=== PATIENT | male | born 1990 | race Two or more races ===

== ENCOUNTER 2025-03-11 19:49 | Inpatient (IN) | payer SELFPAY ==
[~2025-03-11] VITALS: Ht 167.6 cm; Wt 79.0 kg
[2025-03-11 21:18] LABS: Basophils # (auto) 0 10 ^3/uL (0-0.2); Basophils % (auto) 0.5 % (0.0-2.0); Eosinophils # (auto) 0 10 ^3/uL (0-0.8); Eosinophils % (auto) 0.6 % (0.0-7.0); Hematocrit 42.2 % (41.0-53.0); Hemoglobin 14.6 g/dL (13.5-17.5); Lymphocytes # (auto) 1.2 10 ^3/uL (0.4-5.4); Lymphocytes % (auto) 15.8 % (10.0-50.0); Mean Corpuscular Hemoglobin 30.6 pg (28.0-32.0); Mean Corpuscular Hgb Conc. 34.7 g/dL (32.0-36.0); Mean Corpuscular Volume 88.2 fL (80.0-100.0); Monocytes # (auto) 1.3 10 ^3/uL (0-1.3); Neutrophils # (auto) 5.2 10 ^3/uL (1.6-8.6); Neutrophils % (auto) 66.1 % (37.0-80.0); Platelet Count (auto) 275 10^3/uL (140-450); Red Blood Cells 4.78 10^6/uL (4.5-5.90); Red Cell Distribution Width 12.6 % (11.8-14.3); White Blood Cell 7.8 10^3/uL (4.4-10.8)
--- NOTE | 2025-03-11 21:24 | DVH ---
CHEST RADIOGRAPH Indication: AMS Technique: Single frontal view of the chest was obtained Comparison: None FINDINGS: Lines and Tubes: None Lungs: Poor inspiratory effort Pleura: No effusion. No pneumothorax. Cardiomediastinal contours: Unremarkable Bones: No acute osseous abnormality. IMPRESSION: 1. Poor inspiratory effort
--- NOTE | 2025-03-11 21:28 | DVH ---
EXAM: CT HEAD WITHOUT CONTRAST INDICATION: Altered mental status TECHNIQUE: CT of the head without intravenous contrast. Radiation Dose Information: CT Dose: CTDI volume is 8.63 mGy. Dose-length product is 1057.13 mGy*cm The dose indicators for CT are the volume Computed Tomography (CT) Dose Index (CTDIvol) and the Dose Length Product (DLP), and are measured in units of mGy and mGy-cm, respectively. These indicators are not patient dose, but values generated from the CT scanner acquisition factors. The report includes radiation exposure data for exposures received during this examination. COMPARISON: None FINDINGS: There is no evidence of acute intracranial hemorrhage, extra-axial collection, mass effect, midline s hift, herniation or hydrocephalus. The ventricles, sulci and cisterns are age appropriate. The fritz-white differentiation is intact. Patchy periventricular and subcortical white matter hypoattenuation is nonspecific but may be related to small vessel ischemic disease. Small inclusion cyst right maxillary sinus and mastoid air cells are clear. The surrounding soft tissues and osseous structures are unremarkable. IMPRESSION: 1. No acute intracranial hemorrhage 2. No CT findings of territorial ischemia. 3. No CT findings of displaced skull fracture.
[2025-03-11 21:32] LABS: Albumin 4.6 g/dL (3.2-4.8); Alkaline Phosphatase 89 U/L (46-116); Anion Gap 12 (5-15); BUN/Creatinine Ratio 17.6 (10.0-20.0); Blood Alcohol 3.6 mg/dL (<10); Blood Urea Nitrogen 16 mg/dL (9-23); Total Protein 7.5 g/dL (5.7-8.2)
[2025-03-11 21:35] LABS: Alanine Aminotransferase 107 U/L (7-40); Aspartate Aminotransferase 69 U/L (13-40); Bilirubin, Total 1.8 mg/dL (0.2-1.0); Carbon Dioxide 33 mmol/L (20-31); Chloride 86 mmol/L (98-107); Glucose 127 mg/dL (74-106); Magnesium 2.7 mg/dL (1.6-2.6); Potassium 2.6 mmol/L (3.5-5.1); Sodium 131 mmol/L (136-145)
--- NOTE | 2025-03-11 21:42 | ECG ---
[facility] Test Date: 2025-03-11 Test Time: 20:03:04 Pat Name: JAIR CRAIG Department: ED Room: 0217 Gender: M Pad Hand: ZACK : 1990 Requested By: JIMENA RODRÍGUEZ Order Number: [id number] Reading MD: Armani Serrano Measurements Intervals Chancellor Rate: 101 P: 69 CO: 204 QRS: 84 QRSD: 95 T: -27 QT: 367 QTc: 476 Interpretive Statements Sinus tachycardia Borderline prolonged CO interval Consider left atrial enlargement Nonspecific T abnormalities, inferior leads Borderline prolonged QT interval Artifact in lead(s) I,II,III,aVR,aVL,aVF,V1,V2,V3,V4,V5,V6 and baseline wander in lead(s) II,III,aVF Electronically Signed On 03-13-2025 12:47:15 PDT by Armani Serrano Please click the below link to view image of tracing.
[2025-03-11 21:44] LABS: Lipase 38 U/L (12-53)
--- NOTE | 2025-03-11 22:03 | ED.PDOC ---
History of Present Illness HPI Comments 34 y/o M, with a limited known history of polysubstance abuse, is BIBA from a rehabilitation home facility for ALOC. Per EMS, housemates at facility called after endorsing on patient having seizure-like activity, characterized by "shaking," after taking mushrooms and withdrawing from crystal methamphetamine. Patient was noted to have been groaning, responding to painful stimuli and shaking his head to "yes" or "no" questions on scene. He was also found tachycardic, with a rate in the 110's range, a blood glucose of 166, and no signs of oral trauma and PERRL. En route, patient was given 1mg Narcan, with no improvement to mental status. Upon arrival, patient is speaking and responding s lowly and admits additional use of alcohol, earlier. Further history is limited, due to patient's current state. Chief Complaint: ALOC Time Seen by MD: 20:00 Reviewed Notes: Nurses Notes, Medications, Allergies Allergies: Coded Allergies: UNOBTAINABLE (Unverified , 03/11/25) Pt to answering assessment questions. Information Source: Emergency Med Personnel Mode of Arrival: EMS Severity: Moderate Timing: Hours Duration: Since onset Prehospital treatment: 12 Lead EKG, Accucheck (166), Heating Mechanic Review of Systems: Unable to obtain ROS due to patient's altered mental status Vital Signs Vital Signs Date Time Temp Pulse Resp B/P (MAP) Pulse Ox O2 Delivery O2 Flow Rate FiO2 03/11/25 22:03 101 03/11/25 20:13 98.9 17 160/89 (112) 100 98.9 Physical Exam General: Awake, alert, following commands Skin: Skin in warm, dry and intact without rashes or lesions. HEENT: The head is normocephalic and atraumatic. Conjunctivae are clear without exudates or hemorrhage. Sclera is non-icteric. Neck: Normal range of motion. No JVD. Cardiac: Regular rate Respiratory: No signs of respiratory distress. No Stridor. Extremities: Upper and lower extremities are atraumatic in appearance without deformity. Able to move all 4 extremities. Neurological: The patient is awake, alert; slow to respond, speaking in short one-word sentences. There is no facial asymmetry. Past Medical History PAST MEDICAL HISTORY: Unknown, Unobtainable Surgical History: Unknown, Unobtainable Family History Family History: Unknown, Unobtainable Social History Smoker: Unknown, Unobtainable Alcohol: Heavy Drugs: Other (mushrooms) Lives In: Unknown Was a procedure done? Was a procedure done?: No EKG EKG : Pulse Rate (adult): 101 [place]: Normal Cardiac Rhythm: ST Block: None Hypertrophy: None ST: Normal Comments No STEMI Differential Dx Considerations may include: Differential diagnosis considered includes but not limited to intracranial hemorrhage, stroke, head injury, seizure, metabolic disturbance, electrolyte imbalance, infection, substance intoxication, psychiatric cause, other systemic illness, other X-Ray, Labs, Meds, VS Vital Signs Date Time Temp Pulse Resp B/P (MAP) Pulse Ox O2 Delivery O2 Flow Rate FiO2 03/11/25 22:03 101 03/11/25 20:13 98.9 114 17 160/89 (112) 100 98.9 03/11/25 20:03 101 Lab Test 03/11/25 22:20 03/11/25 20:52 Range/Units Blood Gas Specimen Type Arterial Blood Gas Sample Site Left radial Blood Gas Patient Temperature 37.0 Arterial Blood Date Drawn [id number] Arterial Blood pH 7.507 H 7.350-7.450 Arterial Blood Partial Pressure CO2 39.6 35.0-48.0 mmHg Arterial Blood Partial Pressure O2 68.2 L 83.0-108.0 mmHg Arterial Blood HCO3 30.7 H 21.0-28.0 mmol/L Arterial Blood Oxygen Saturation 94.2 94.0-98.0 % Arterial Blood Base Excess 7.1 H -2.0-3.0 mmol/L Arterial Blood Oxyhemoglobin 93.4 L 94.0-98.0 % Arterial Blood Carboxyhemoglobin 0.6 0.5-1.5 % Arterial Blood Methemoglobin 0.3 0.0-1.5 % Home Test Modified Blood Gas Total Hemoglobin 15.20 13.5-17.5 g/dL Blood Gas Modality Room air FiO2 % 21.0 White Blood Count 7.8 4.4-10.8 10^3/uL Red Blood Count 4.78 4.5-5.90 10^6/uL Hemoglobin 14.6 13.5-17.5 g/dL Hematocrit 42.2 41.0-53.0 % Mean Corpuscular Volume 88.2 80.0-100.0 fL Mean Corpuscular Hemoglobin 30.6 28.0-32.0 pg Mean Corpuscular Hemoglobin Concent 34.7 32.0-36.0 g/dL Red Cell Distribution Width 12.6 11.8-14.3 % Platelet Count 275 140-450 10^3/uL Mean Platelet Volume 7.8 6.9-10.8 fL Neutrophils (%) (Auto) 66.1 37.0-80.0 % Lymphocytes (%) (Auto) 15.8 10.0-50.0 % Monocytes (%) (Auto) 17.0 H 0.0-12.0 % Eosinophils (%) (Auto) 0.6 0.0-7.0 % Basophils (%) (Auto) 0.5 0.0-2.0 % Neutrophils # (Auto) 5.2 1.6-8.6 10 ^3/uL Lymphocytes # (Auto) 1.2 0.4-5.4 10 ^3/uL Monocytes # (Auto) 1.3 0-1.3 10 ^3/uL Eosinophils # (Auto) 0 0-0.8 10 ^3/uL Basophils # (Auto) 0 0-0.2 10 ^3/uL Nucleated Red Blood Cells 0.0 % Sodium Level 131 L 136-145 mmol/L Potassium Level 2.6 L 3.5-5.1 mmol/L Chloride Level 86 L 98-107 mmol/L Carbon Dioxide Level 33 H 20-31 mmol/L Anion Gap 12 5-15 Blood Urea Nitrogen 16 9-23 mg/dL Creatinine 0.91 0.700-1.30 mg/dL Glomerular Filtration Rate Calc 112 >90 mL/min BUN/Creatinine Ratio 17.6 10.0-20.0 Serum Glucose 127 H 74-106 mg/dL Calcium Level 10.0 8.7-10.4 mg/dL Magnesium Level 2.7 H 1.6-2.6 mg/dL Total Bilirubin 1.8 H 0.2-1.0 mg/dL Aspartate Amino Transferase (AST) 69 H 13-40 U/L Alanine Aminotransferase (ALT) 107 H 7-40 U/L Alkaline Phosphatase 89 46-116 U/L Troponin I High Sensitivity 5 </=54 ng/L B-Type Natriuretic Peptide 19.35 0-100 pg/mL Total Protein 7.5 5.7-8.2 g/dL Albumin 4.6 3.2-4.8 g/dL Lipase 38 12-53 U/L Plasma/Serum Blood Alcohol 3.6 <10 mg/dL Current Medications Medications (Trade) Dose Ordered Sig/Kamar Route Start Time Stop Time Status Last Admin Sodium Chloride 1,000 ml @ 1,000 mls/hr Q1H ONCE IV 03/11/25 20:15 03/11/25 21:14 DC 03/11/25 22:33 Potassium Chloride 100 ml @ 50 mls/hr Q2H IV 03/11/25 22:15 03/12/25 02:14 03/11/25 22:34 [place] [address] Ph: [phone] DIAGNOSTIC IMAGING Diagnostic Imaging Report : [id number] Signed PATIENT: ADELIA LAVARESACCT: [id number] UNIT: [id number] 1 : 1990 LOC: ER ROOM / BED: / AGE / SEX: 34 / M ADM STATUS: REG ER SERVICE 04 ORDERING PHYSICIAN: JIMENA RODRÍGUEZ MD PROCEDURE(s): HWOCT - HEAD WITHOUT CONTRAST REASON: Altered mental status ORDER NUMBER(s): [id number], ACCESSION NUMBER(s): [id number] EXAM: CT HEAD WITHOUT CONTRAST INDICATION: Altered mental status TECHNIQUE: CT of the head without intravenous contrast. Radiation Dose Information: CT Dose: CTDI volume is 8.63 mGy. Dose-length product is 1057.13 mGy*cm The dose indicators for CT are the volume Computed Tomography (CT) Dose Index (CTDIvol) and the Dose Length Product (DLP), and are measured in units of mGy and mGy-cm, respectively. These indicators are not patient dose, but values generated from the CT scanner acquisition factors. The report includes radiation exposure data for exposures received during this examination. COMPARISON: None FINDINGS: There is no evidence of acute intracranial hemorrhage, extra-axial collection, mass effect, midline shift, herniation or hydrocephalus. The ventricles, sulci and cisterns are age appropriate. The fritz-white differentiation is intact. Patchy periventricular and subcortical white matter hypoattenuation is nonspecific but may be related to small vessel ischemic disease. Small inclusion cyst right maxillary sinus and mastoid air cells are clear. The surrounding soft tissues and osseous structures are unremarkable. IMPRESSION: 1. No acute intracranial hemorrhage 2. No CT findings of territorial ischemia. 3. No CT findings of displaced skull fracture. ATED BY: CORONA SHORT Jr., DO DICTATED DATE/TIME: 03/11/252124 SIGNED BY: CORONA SHORT Jr., DO SIGNED DATE/TIME: 03/11/252124 CC: [place] [address] Ph: [phone] DIAGNOSTIC IMAGING Diagnostic Imaging Report : [id number] Signed PATIENT: ADELIA ALVARESACCT: [id number] UNIT: [id number] 1 : 1990 LOC: ER ROOM / BED: / AGE / SEX: 34 / M ADM STATUS: REG ER SERVICE 04 ORDERING PHYSICIAN: JIMENA RODRÍGUEZ MD PROCEDURE(s): CXR1 - CHEST XRAY 1 VIEW REASON: AMS ORDER NUMBER(s): [id number], ACCESSION NUMBER(s): [id number] CHEST RADIOGRAPH Indication: AMS Technique: Single frontal view of the chest was obtained Comparison: None FINDINGS: Lines and Tubes: None Lungs: Poor inspiratory effort Pleura: No effusion. No pneumothorax. Cardiomediastinal contours: Unremarkable Bones: No acute osseous abnormality. IMPRESSION: 1. Poor inspiratory effort ATED BY: CORONA SHORT Jr., DO DICTATED DATE/TIME: 03/11/252121 SIGNED BY: CORONA SHORT Jr., DO SIGNED DATE/TIME: 03/11/252121 CC: PROCEDURE(s): HWOCT - HEAD WITHOUT CONTRAST REASON: Altered mental status ORDER NUMBER(s): [id number], ACCESSION NUMBER(s): [id number] EXAM: CT HEAD WITHOUT CONTRAST INDICATION: Altered mental status TECHNIQUE: CT of the head without intravenous contrast. Radiation Dose Information: CT Dose: CTDI volume is 8.63 mGy. Dose-length product is 1057.13 mGy*cm The dose indicators for CT are the volume Computed Tomography (CT) Dose Index (CTDIvol) and the Dose Length Product (DLP), and are measured in units of mGy and mGy-cm, respectively. These indicators are not patient dose, but values generated from the CT scanner acquisition factors. The report includes radiation exposure data for exposures received during this examination. COMPARISON: None FINDINGS: There is no evidence of acute intracranial hemorrhage, extra-axial collection, mass effect, midline shift, herniation or hydrocephalus. The ventricles, sulci and cisterns are age appropriate. The fritz-white differentiation is intact. Patchy periventricular and subcortical white matter hypoattenuation is nonspecific but may be related to small vessel ischemic disease. Small inclusion cyst right maxillary sinus and mastoid air cells are clear. The surrounding soft tissues and osseous structures are unremarkable. IMPRESSION: 1. No acute intracranial hemorrhage 2. No CT findings of territorial ischemia. 3. No CT findings of displaced skull fracture. EDURE(s): ABDL - ABDOMEN LIMITED REASON: RUQ, elevated LFTs ORDER NUMBER(s): [id number], ACCESSION NUMBER(s): [id number] ABDOMINAL ULTRASOUND CLINICAL HISTORY: RUQ, elevated LFTs TECHNIQUE: Multiple grayscale and color Doppler ultrasound images were obtained of the abdomen. WID: COMPARISON: None FINDINGS: Liver and Biliary System: Increased echogenicity, mildly enlarged measuring 17.3 cm. No focal hepatic observations. No intrahepatic bile duct dilatation. The common duct measures 0.4 cm at the maykel hepatis. The gallbladder is normal caliber without cholelithiasis or wall thickening.. Pancreas: Visualized portions are unremarkable. Kidneys: The right kidney is 11 cm. No hydronephrosis, increased echogenicity, shadowing stone, or focal lesion. IMPRESSION: Mild hepatomegaly with diffuse hepatic steatosis. ATED BY: NAY LEIJA MD DICTATED DATE/TIME: 03/11/252310 SIGNED BY: NAY LEIJA MD SIGNED DATE/TIME: 03/11/252310 CC: Time of 1ST Reevaluation: 20:30 Reevaluation 1ST: Unchanged Patient Education/Counseling: Other (patient is intoxicated ) Family Education/Counseling: No Family Present Departure 1 Departure Time of Disposition: 23:35 Impression: Primary Impression: Altered mental status Additional Impressions: Hypokalemia Hyponatremia Metabolic encephalopathy Disposition: ADMITTED INPATIENT Condition: Guarded Comments 34-year-old male who presented to the emergency department with altered mental status. IV fluids, potassium replacement initiated in the emergency department. Patient admitted to hospitalist service for further treatment, evaluation and monitoring. Extensive evaluation was performed in attempt to identify or rule out: (See differential diagnosis section) The following tests were ordered, and results were reviewed by me and discussed with patient: (See diagnostic results section) The following test were independently interpreted by me: N/A I reviewed and agreed with the following test results read by other providers: N/A I reviewed the following notes from the pt's past medical encounters: N/A Additional information was gathered from interviewing the following independent historians: EMS Discussion of management or test interpretation with external physician/other qualified health professional healthcare representative: N/A Addressed an acute or chronic illness that poses a threat to life or bodily function: Metabolic alkalosis, altered mental status, hypokalemia, other Decision regarding hospitalization or escalation of hospital level of care: Risk and benefits of admission for further treatment of patient's condition was con sidered. Due to patient's current clinical condition, high risk of decline and poor outcome if discharged and need for further inpatient management and monitoring, patient will be admitted to the hospital. Drug therapy requiring intensive monitoring for toxicity: IV potassium Parenteral controlled substances: N/A Decision regarding elective major surgery with identified patient or procedure risk factors: N/A Decision regarding emergency major surgery: N/A Decision not to resuscitate or to de-escalate care because of poor prognosis: N/A Diagnosis or treatment significantly limited by social determinants of health: N/A Critical Care Note Critical Care Time?: No Stability Stability form required: No Heart Score Heart Score: Heart Score Response (Comments) Value History N/A 0 EKG N/A 0 Age N/A 0 Risk Factors N/A 0 Troponin N/A 0 Total 0 I personally scribed for JIMENA RODRÍGUEZ MD ([email or web address]) on 03/11/25 at 22:03. Electronically submitted by Maxx Rocha ([email or web address]). JIMENA RODRÍGUEZ MD March 11, 2025 22:03
[2025-03-11] MEDS: SODIUM CHLORIDE 0.9% 1,000 ML IV ONE ×2 (22:33→23:36)
[2025-03-11] MEDS: POTASSIUM CHL 20MEQ/100ML 100 ML IV SCH (22:34)
[2025-03-11 22:41] LABS: Base Excess 7.1 mmol/L (-2.0-3.0)
--- NOTE | 2025-03-11 23:14 | DVH ---
ABDOMINAL ULTRASOUND CLINICAL HISTORY: RUQ, elevated LFTs TECHNIQUE: Multiple grayscale and color Doppler ultrasound images were obtained of the abdomen. WID: COMPARISON: None FINDINGS: Liver and Biliary System: Increased echogenicity, mildly enlarged measuring 17.3 cm. No focal hepa tic observations. No intrahepatic bile duct dilatation. The common duct measures 0.4 cm at the port a hepatis. The gallbladder is normal caliber without cholelithiasis or wall thickening.. Pancreas: Visualized portions are unremarkable. Kidneys: The right kidney is 11 cm. No hydronephrosis, increased echogenicity, shadowing stone, or focal lesion. IMPRESSION: Mild hepatomegaly with diffuse hepatic steatosis.
--- NOTE | 2025-03-11 23:14 | DVHHP2 ---
History of Present Illness Reason for Visit: Altered mental status History of Present Illness 34-year-old male presents for evaluation of altered mental status. Patient was sent from a rehabilitation facility for evaluation of altered mental status which started today. Patient is currently lethargic oriented x2. At times he refuses to answer any questions. No focal deficits noted. Denies chest pain or shortness for breath. No other acute complaints Past Medical History Unknown Past Surgical History Unknown Family History Noncontributory Smoke: No ALCOHOL: none Drugs: None Lives: with Family Review of Systems Review of Systems Review of systems are currently negative otherwise addressed in HPI. Allergies: Coded Allergies: UNOBTAINABLE (Unverified , 03/11/25) Pt to answering assessment questions. Medications Current Medications Medications Dose Ordered Sig/Kamar Route Start Time Stop Time Status Last Admin Dose Admin Potassium Chloride 100 ml @ 50 mls/hr Q2H IV 03/11/25 22:15 03/12/25 02:14 03/11/25 22:34 50 MLS/HR Exam Vital Signs Vital Signs Date Time Temp Pulse Resp B/P (MAP) Pulse Ox O2 Delivery O2 Flow Rate FiO2 03/11/25 22:03 101 03/11/25 20:13 98.9 17 160/89 (112) 100 98.9 Exam Gen: 34-year-old male in mild distress, lethargic Skin: Warm, dry, normal color and texture, no rash. HEENT: Normocephalic atraumatic, mucous membranes moist and pink. Neck: Cervical and supraclavicular nodes normal without enlargement, trachea is midline, thyroid gland is normal without masses. Pulmonary: Clear to auscultation and percussion bilaterally. Cardiac: Regular rate and rhythm. No murmur Abdomen: Soft, nontender, nondistended, bowel sounds present all 4 quadrants, no guarding, no rigidity, no organomegaly. Extremities: No cyanosis, clubbing, no edema Neuro: Lethargic Labs/Xrays ORDERING PHYSICIAN: JIMENA RODRÍGUEZ MD PROCEDURE(s): CXR1 - CHEST XRAY 1 VIEW REASON: AMS ORDER NUMBER(s): [id number], ACCESSION NUMBER(s): [id number] CHEST RADIOGRAPH Indication: AMS Technique: Single frontal view of the chest was obtained Comparison: None FINDINGS: Lines and Tubes: None Lungs: Poor inspiratory effort Pleura: No effusion. No pneumothorax. Cardiomediastinal contours: Unremarkable Bones: No acute osseous abnormality. IMPRESSION: 1. Poor inspiratory effort RING PHYSICIAN: JIMENA RODRÍGUEZ MD PROCEDURE(s): HWOCT - HEAD WITHOUT CONTRAST REASON: Altered mental status ORDER NUMBER(s): [id number], ACCESSION NUMBER(s): [id number] EXAM: CT HEAD WITHOUT CONTRAST INDICATION: Altered mental status TECHNIQUE: CT of the head without intravenous contrast. Radiation Dose Information: CT Dose: CTDI volume is 8.63 mGy. Dose-length product is 1057.13 mGy*cm The dose indicators for CT are the volume Computed Tomography (CT) Dose Index (CTDIvol) and the Dose Length Product (DLP), and are measured in units of mGy and mGy-cm, respectively. These indicators are not patient dose, but values generated from the CT scanner acquisition factors. The report includes radiation exposure data for exposures received during this examination. COMPARISON: None FINDINGS: There is no evidence of acute intracranial hemorrhage, extra-axial collection, mass effect, midline shift, herniation or hydrocephalus. The ventricles, sulci and cisterns are age appropriate. The fritz-white differentiation is intact. Patchy periventricular and subcortical white matter hypoattenuation is nonspecific but may be related to small vessel ischemic disease. Small inclusion cyst right maxillary sinus and mastoid air cells are clear. The surrounding soft tissues and osseous structures are unremarkable. IMPRESSION: 1. No acute intracranial hemorrhage 2. No CT findings of territorial ischemia. 3. No CT findings of displaced skull fracture. Labs Test 03/11/25 22:20 03/11/25 20:52 Range/Units Blood Gas Specimen Type Arterial Blood Gas Sample Site Left radial Blood Gas Patient Temperature 37.0 Arterial Blood Date Drawn Arterial Blood pH 7.507 H 7.350-7.450 Arterial Blood Partial Pressure CO2 39.6 35.0-48.0 mmHg Arterial Blood Partial Pressure O2 68.2 L 83.0-108.0 mmHg Arterial Blood HCO3 30.7 H 21.0-28.0 mmol/L Arterial Blood Oxygen Saturation 94.2 94.0-98.0 % Arterial Blood Base Excess 7.1 H -2.0-3.0 mmol/L Arterial Blood Oxyhemoglobin 93.4 L 94.0-98.0 % Arterial Blood Carboxyhemoglobin 0.6 0.5-1.5 % Arterial Blood Methemoglobin 0.3 0.0-1.5 % Home Test Modified Blood Gas Total Hemoglobin 15.20 13.5-17.5 g/dL Blood Gas Modality Room air FiO2 % 21.0 White Blood Count 7.8 4.4-10.8 10^3/uL Red Blood Count 4.78 4.5-5.90 10^6/uL Hemoglobin 14.6 13.5-17.5 g/dL Hematocrit 42.2 41.0-53.0 % Mean Corpuscular Volume 88.2 80.0-100.0 fL Mean Corpuscular Hemoglobin 30.6 28.0-32.0 pg Mean Corpuscular Hemoglobin Concent 34.7 32.0-36.0 g/dL Red Cell Distribution Width 12.6 11.8-14.3 % Platelet Count 275 140-450 10^3/uL Mean Platelet Volume 7.8 6.9-10.8 fL Neutrophils (%) (Auto) 66.1 37.0-80.0 % Lymphocytes (%) (Auto) 15.8 10.0-50.0 % Monocytes (%) (Auto) 17.0 H 0.0-12.0 % Eosinophils (%) (Auto) 0.6 0.0-7.0 % Basophils (%) (Auto) 0.5 0.0-2.0 % Neutrophils # (Auto) 5.2 1.6-8.6 10 ^3/uL Lymphocytes # (Auto) 1.2 0.4-5.4 10 ^3/uL Monocytes # (Auto) 1.3 0-1.3 10 ^3/uL Eosinophils # (Auto) 0 0-0.8 10 ^3/uL Basophils # (Auto) 0 0-0.2 10 ^3/uL Nucleated Red Blood Cells 0.0 % Sodium Level 131 L 136-145 mmol/L Potassium Level 2.6 L 3.5-5.1 mmol/L Chloride Level 86 L 98-107 mmol/L Carbon Dioxide Level 33 H 20-31 mmol/L Anion Gap 12 5-15 Blood Urea Nitrogen 16 9-23 mg/dL Creatinine 0.91 0.700-1.30 mg/dL Glomerular Filtration Rate Calc 112 >90 mL/min BUN/Creatinine Ratio 17.6 10.0-20.0 Serum Glucose 127 H 74-106 mg/dL Calcium Level 10.0 8.7-10.4 mg/dL Magnesium Level 2.7 H 1.6-2.6 mg/dL Total Bilirubin 1.8 H 0.2-1.0 mg/dL Aspartate Amino Transferase (AST) 69 H 13-40 U/L Alanine Aminotransferase (ALT) 107 H 7-40 U/L Alkaline Phosphatase 89 46-116 U/L Troponin I High Sensitivity 5 </=54 ng/L B-Type Natriuretic Peptide 19.35 0-100 pg/mL Total Protein 7.5 5.7-8.2 g/dL Albumin 4.6 3.2-4.8 g/dL Lipase 38 12-53 U/L Plasma/Serum Blood Alcohol 3.6 <10 mg/dL Assessment/Plan Assessment/Plan Possible toxic encephalopathy Electrolyte imbalance Mild transaminitis Plan Admit the patient to [facility] to the hospitalist Single organ ultrasound pending Maintenance IV fluids UDS pending Continue treatment per orders Plan discussed with: Patient My Orders Orders - MANAS DE PAZ Procedure Category Date Status Time Creatine Kinase LAB 03/11/25 Transmitted 23:03 Ammonia LAB 03/11/25 Transmitted 23:03 NS PHA 03/11/25 Transmitted 23:15 NS PHA 03/11/25 Transmitted 23:15 Admit ADMIT 03/11/25 Transmitted 23:03 Ondansetron Hcl PHA 03/11/25 Transmitted (Zofran) 23:15 Comprehensive LAB 03/12/25 Verified Metabolic Panel 04:00 Condition: Stable BRENDON 03/11/25 Transmitted 23:03 Bedrest With Bathroom BRENDON 03/11/25 Transmitted Privileg 23:03 Date of Service: March 11, 2025 Billing Provider: MANAS DE PAZ Common Visit Codes: 28441-[id number] INP/OBS CARE (HIGH) MANAS DE PAZ March 11, 2025 23:14
[2025-03-11] MEDS ORDERED: ONDANSETRON HCL 4 MG/2 ML VIAL IV PRN (23:15)
[2025-03-11] MEDS: SODIUM CHLORIDE 0.9% 500 ML IV ONE (23:36)
[2025-03-11 23:51] VITALS: PULSE 85; RESP 18; O2SAT 96
[2025-03-12 00:28] LABS: Urine Bacteria None Seen /hpf (None Seen)
[2025-03-12 00:47] LABS: Urine Blood TRACE /uL (Negative); Urine Clarity Clear (Clear); Urine Color Light-Orange (Yellow); Urine Mucus FEW (None Seen); Urine Protein, UAD 1+ (Negative); Urine Specific Gravity 1.029 (1.001-1.035); Urine Squamous Epithelial Cell None Seen /hpf (<5); Urine Urobilinogen 3 mg/dL (Negative); Urine WBC 2 /HPF (0-3)
[2025-03-12 01:55] LABS: Amphetamine Screen, Urine Neg (NEGATIVE); Barbiturate Scree,Urine Neg (NEGATIVE); Benzodiazephine Screen, Urine Neg (NEGATIVE); Cannabinoid Screen, Urine Neg (NEGATIVE); Cocaine Screen, Urine Neg (NEGATIVE); Opiate Scree,Urine Neg (NEGATIVE); Phencyclidine Screen, Urine Neg (NEGATIVE)
[2025-03-12] MEDS: LORazepam 2MG/ML-1ML VIAL IV ONE (03:37)
[2025-03-12] MEDS: LORazepam 2MG/ML-1ML VIAL IM ONE (05:24)
[2025-03-12 05:52] LABS: Albumin 4.7 g/dL (3.2-4.8); Alkaline Phosphatase 82 U/L (46-116); Anion Gap 14 (5-15); BUN/Creatinine Ratio 14.1 (10.0-20.0); Blood Urea Nitrogen 14 mg/dL (9-23); Calcium 9.5 mg/dL (8.7-10.4); Carbon Dioxide 27 mmol/L (20-31); Total Protein 7.6 g/dL (5.7-8.2)
[2025-03-12 05:56] LABS: Alanine Aminotransferase 99 U/L (7-40); Aspartate Aminotransferase 69 U/L (13-40); Bilirubin, Total 1.6 mg/dL (0.2-1.0); Chloride 91 mmol/L (98-107); Glucose 131 mg/dL (74-106); Potassium 2.9 mmol/L (3.5-5.1); Sodium 132 mmol/L (136-145)
[2025-03-12 12:48] VITALS: PULSE 89; RESP 16; O2SAT 93
--- NOTE | 2025-03-12 14:18 | DVHPN2 ---
Subjective 34-year-old male with unknown past medical history is brought to the hospital by paramedics with altered level of consciousness He came from a facility or a board and prison, he does not exactly know where he came from, he says he lives by himself in an apartment in [place] however later he says he came from [place], when he was asked [place] [facility] [place] he said he was [place] here He is disoriented to place He is disoriented to the day of the week, he is oriented to the month and year No complaints of pain He denies smoking or drug use, he admits to drinking beer daily Changes from previous H/P or p: Changes Objective Vitals Vital Signs Date Time Temp Pulse Resp B/P (MAP) Pulse Ox O2 Delivery O2 Flow Rate FiO2 03/12/25 13:43 94 11 97 03/12/25 12:48 Room Air* 0 21 03/12/25 10:49 108/66 (80) 03/11/25 23:51 99.0 99.0 Intake/Output Intake and Output 03/12/25 07:00 Intake Total 500 ml Balance 500 ml Intake IV Total 500 ml General Appearance: Alert, Oriented X3, Cooperative, No acute distress Lungs: Clear to auscultation, Normal air movement Cardiovascular: Regular rate, Normal S1, Normal S2, No murmurs Abdomen: Normal bowel sounds, Soft, No tenderness, No hepatospenomegaly Extremities: No edema Medications Current Medications Medications Dose Ordered Sig/Kamar Route Start Time Stop Time Status Last Admin Dose Admin Ondansetron HCl 4 mg Q4HP PRN IV 03/11/25 23:15 Laboratory Results Laboratory Tests 03/11/25 20:52 03/12/25 05:13 Chemistry Test 03/11/25 20:52 03/12/25 05:13 Albumin 4.6 g/dL (3.2-4.8) 4.7 g/dL (3.2-4.8) Calcium Level 10.0 mg/dL (8.7-10.4) 9.5 mg/dL (8.7-10.4) Magnesium Level 2.7 mg/dL (1.6-2.6) H Total Protein 7.5 g/dL (5.7-8.2) 7.6 g/dL (5.7-8.2) Lipid panel Test 03/11/25 20:52 Lipase 38 U/L (12-53) Cardiac Markers Test 03/11/25 20:52 B-Type Natriuretic Peptide 19.35 pg/mL (0-100) LFT Test 03/11/25 20:52 03/12/25 05:13 Alanine Aminotransferase (ALT) 107 U/L (7-40) H 99 U/L (7-40) H Alkaline Phosphatase 89 U/L (46-116) 82 U/L (46-116) Aspartate Amino Transferase (AST) 69 U/L (13-40) H 69 U/L (13-40) H Total Bilirubin 1.8 mg/dL (0.2-1.0) H 1.6 mg/dL (0.2-1.0) H Urinalysis Test 03/11/25 23:59 Urine Color Light-orange (Yellow) Urine Clarity Clear (Clear) Urine pH 6.0 (5.0-9.0) Urine Specific [place] 1.029 (1.001-1.035) Urine Protein 1+ (Negative) H Urine Ketones Trace (Negative) Urine Blood Trace /uL (Negative) H Urine Nitrite Negative (Negative) Urine Bilirubin Negative (Negative) Urine Urobilinogen 3 mg/dL (Negative) H Urine Leukocyte Esterase Negative /uL (Negative) Urine RBC 15 /hpf (0 - 3) Urine Microscopic WBC 2 /HPF (0-3) Urine Squamous Epithelial Cells None seen /hpf (<5) Urine Bacteria None seen /hpf (None Seen) Urine Mucus Few (None Seen) Urine Glucose Normal mg/dL (Normal) Blood Gas Results Test 03/11/25 22:20 Arterial Blood pH 7.507 (7.350-7.450) FiO2 % 21.0 Assessment/Plan Assessment/Plan Acute metabolic encephalopathy Hepatomegaly Diffuse hepatic steatosis Possible alcoholism Hyponatremia Hypokalemia Hyperbilirubinemia Transaminitis, most likely due to alcohol use Plan Continue IV fluids with potassium Add thiamine and folic acid and multivitamins Regular diet Monitor the potassium and magnesium and replace as needed Watch for alcohol withdrawal Check the TSH and ammonia level Monitor the liver functions Monitor the kidney function Plan discussed with: Patient Date of Service: March 12, 2025 Billing Provider: ANDREINA BRIGHT MD Common Visit Codes: [id number] INP/OBS CARE(HIGH) ANDREINA BRIGHT MD March 12, 2025 14:18
[2025-03-12] MEDS: THIAMINE HCL 100 MG TAB PO ONE (14:51)
[2025-03-12] MEDS: FOLIC ACID 1 MG TAB PO ONE (14:51)
[2025-03-12] MEDS: MULTIPLE VITAMIN TAB PO ONE (14:51)
[2025-03-12] MEDS: POTASSIUM CHL 20 Meq TABLET PO ONE (14:52)
[2025-03-12] MEDS: SOD CHL 0.9%/ KCL 20MEQ 1,000 ML IV SCH (15:09)
[2025-03-12 20:00] VITALS: PULSE 104; O2SAT 96
[2025-03-13] VITALS (8 sets, daily range): BP systolic 118–138; BP diastolic 79–106; PULSE 75–91; RESP 16–20; TEMP 98.4–99; O2SAT 97–100
[2025-03-13 05:10] LABS: Basophils # (auto) 0.1 10 ^3/uL (0-0.2); Basophils % (auto) 1.5 % (0.0-2.0); Eosinophils # (auto) 0.2 10 ^3/uL (0-0.8); Eosinophils % (auto) 3.4 % (0.0-7.0); Hematocrit 37.5 % (41.0-53.0); Hemoglobin 12.5 g/dL (13.5-17.5); Lymphocytes # (auto) 1.3 10 ^3/uL (0.4-5.4); Lymphocytes % (auto) 28.1 % (10.0-50.0); Mean Corpuscular Hemoglobin 30.3 pg (28.0-32.0); Mean Corpuscular Hgb Conc. 33.3 g/dL (32.0-36.0); Mean Corpuscular Volume 90.9 fL (80.0-100.0); Monocytes # (auto) 0.8 10 ^3/uL (0-1.3); Monocytes % (auto) 17.6 % (0.0-12.0); Neutrophils # (auto) 2.2 10 ^3/uL (1.6-8.6); Neutrophils % (auto) 49.4 % (37.0-80.0); Platelet Count (auto) 244 10^3/uL (140-450); Red Blood Cells 4.12 10^6/uL (4.5-5.90); Red Cell Distribution Width 13.1 % (11.8-14.3); White Blood Cell 4.6 10^3/uL (4.4-10.8)
[2025-03-13 05:22] LABS: Albumin 3.7 g/dL (3.2-4.8); Alkaline Phosphatase 81 U/L (46-116); Anion Gap 7 (5-15); BUN/Creatinine Ratio 15.7 (10.0-20.0); Bilirubin, Total 0.9 mg/dL (0.2-1.0); Blood Urea Nitrogen 13 mg/dL (9-23); Calcium 8.9 mg/dL (8.7-10.4); Carbon Dioxide 29 mmol/L (20-31); Chloride 103 mmol/L (98-107); Cholesterol 131 mg/dL (< 200); HDL Cholesterol 44 mg/dL (40-59); LDL Cholesterol 71 mg/dL (< 100); Magnesium 2.5 mg/dL (1.6-2.6); Sodium 139 mmol/L (136-145); Total Protein 6.1 g/dL (5.7-8.2); Triglycerides 64 mg/dL (< 150)
[2025-03-13 05:23] LABS: Alanine Aminotransferase 88 U/L (7-40); Aspartate Aminotransferase 57 U/L (13-40); Glucose 115 mg/dL (74-106); Potassium 2.8 mmol/L (3.5-5.1)
[2025-03-13] MEDS: MULTIPLE VITAMIN TAB PO SCH (09:48)
[2025-03-13] MEDS: FOLIC ACID 1 MG TAB PO SCH (09:48)
[2025-03-13] MEDS: THIAMINE HCL 100 MG TAB PO SCH (09:49)
[2025-03-13] MEDS: POTASSIUM CHL 20 Meq TABLET PO ONE (10:34)
--- NOTE | 2025-03-13 14:29 | DVHPN2 ---
Subjective Patient is more alert and oriented now His potassium is still low at 2.8 Changes from previous H/P or p: Changes Objective Vitals Vital Signs Date Time Temp Pulse Resp B/P (MAP) Pulse Ox O2 Delivery O2 Flow Rate FiO2 03/13/25 12:57 99.0 91 16 128/95 (106) 97 99.0 03/13/25 11:00 Room Air* 0 21 Intake/Output Intake and Output 03/13/25 07:00 Intake Total 240 ml Balance 240 ml IV Total 240 ml General Appearance: Alert, Oriented X3, Cooperative, No acute distress Lungs: Clear to auscultation, Normal air movement Cardiovascular: Regular rate, Normal S1, Normal S2, No murmurs Abdomen: Normal bowel sounds, Soft, No tenderness, No hepatospenomegaly Extremities: No edema Medications Current Medications Medications Dose Ordered Sig/Kamar Route Start Time Stop Time Status Last Admin Dose Admin Ondansetron HCl 4 mg Q4HP PRN IV 03/11/25 23:15 Potassium Chloride/Sodium Chloride 1,000 ml @ 120 mls/hr [id number] IV 03/12/25 14:15 03/12/25 23:52 120 MLS/HR Thiamine HCl 100 mg DAILY PO 03/13/25 10:00 03/13/25 09:49 100 MG Folic Acid 1 mg DAILY PO 03/13/25 10:00 03/13/25 09:48 1 MG Multivitamins 1 tab DAILY PO 03/13/25 10:00 03/13/25 09:48 1 TAB Laboratory Results Laboratory Tests 03/13/25 04:40 Chemistry Test 03/13/25 04:40 Albumin 3.7 g/dL (3.2-4.8) Calcium Level 8.9 mg/dL (8.7-10.4) Magnesium Level 2.5 mg/dL (1.6-2.6) Total Protein 6.1 g/dL (5.7-8.2) Lipid panel Test 03/13/25 04:40 Cholesterol Level 131 mg/dL (< 200) HDL Cholesterol 44 mg/dL (40-59) Triglycerides Level 64 mg/dL (< 150) LFT Test 03/13/25 04:40 Alanine Aminotransferase (ALT) 88 U/L (7-40) H Alkaline Phosphatase 81 U/L (46-116) Aspartate Amino Transferase (AST) 57 U/L (13-40) H Total Bilirubin 0.9 mg/dL (0.2-1.0) HgA1c, TSH Test 03/13/25 04:40 Thyroid Stimulating Hormone (TSH) 1.49 uIU/mL (0.55-4.78) Urinalysis Test 03/11/25 23:59 Urine Color Light-orange (Yellow) Urine Clarity Clear (Clear) Urine pH 6.0 (5.0-9.0) Urine Specific [place] 1.029 (1.001-1.035) Urine Protein 1+ (Negative) H Urine Ketones Trace (Negative) Urine Blood Trace /uL (Negative) H Urine Nitrite Negative (Negative) Urine Bilirubin Negative (Negative) Urine Urobilinogen 3 mg/dL (Negative) H Urine Leukocyte Esterase Negative /uL (Negative) Urine RBC 15 /hpf (0 - 3) Urine Microscopic WBC 2 /HPF (0-3) Urine Squamous Epithelial Cells None seen /hpf (<5) Urine Bacteria None seen /hpf (None Seen) Urine Mucus Few (None Seen) Urine Glucose Normal mg/dL (Normal) Microbiology Microbiology Date/Time Source Procedure Growth Status 03/11/25 20:52 Blood Blood Culture - Preliminary NO GROWTH AFTER 24 HOURS OF INCUBATION. Resulted Assessment/Plan Assessment/Plan Acute metabolic encephalopathy Hepatomegaly Diffuse hepatic steatosis Alcohol use disorder Hyponatremia Hypokalemia Hyperbilirubinemia Transaminitis, most likely due to alcohol use Plan Continue IV fluids with potassium Add thiamine and folic acid and multivitamins Regular diet Monitor the potassium and magnesium and replace as needed Watch for alcohol withdrawal Check the TSH and ammonia level Monitor the liver functions Monitor the kidney function 03/13/2025: Replace potassium IV and p.o. Continue IV fluids Monitor the patient closely He is getting better He says he lives in a [facility] but he does not know the address over the phone number Consult social work administrator to try to help with discharge planning and locate where the patient lives Check his potassium again in the morning Continue thiamine and multivitamins and folic acid Plan discussed with: Patient My Orders Orders - ANDREINA BRIGHT MD Procedure Category Date Status Time * [employer] CONS 03/13/25 Transmitted Consult 11:25 Date of Service: March 13, 2025 Billing Provider: ANDREINA BRIGHT MD Common Visit Codes: [id number] INP/OBS CARE(HIGH) ANDREINA BRIGHT MD March 13, 2025 14:29
[2025-03-14 01:00] VITALS: BP 128/91; PULSE 91; RESP 19; TEMP 98.4; O2SAT 100
[2025-03-14 05:00] VITALS: BP 122/87; PULSE 74; RESP 18; TEMP 98.4; O2SAT 98
[2025-03-14 07:11] LABS: Anion Gap 10 (5-15); Carbon Dioxide 22 mmol/L (20-31); Potassium 3.7 mmol/L (3.5-5.1); Sodium 141 mmol/L (136-145)
[2025-03-14 07:14] LABS: Calcium 8.4 mg/dL (8.7-10.4); Chloride 109 mmol/L (98-107)
[2025-03-14 07:17] LABS: Glucose 94 mg/dL (74-106)
[2025-03-14 07:18] LABS: Blood Urea Nitrogen 8 mg/dL (9-23)
[2025-03-14 08:00] VITALS: PULSE 74; RESP 18; O2SAT 98
[2025-03-14 09:00] VITALS: BP 120/81; PULSE 101; RESP 18; TEMP 98.9; O2SAT 97
[2025-03-14] MEDS ORDERED: MULTTAB99 PO (10:55)
[2025-03-14] MEDS ORDERED: FOLI-119 PO (10:55)
[2025-03-14] MEDS ORDERED: THIA100T10 PO (10:55)
[2025-03-14 12:47] VITALS: BP 129/95; PULSE 64; RESP 17; TEMP 99.1; O2SAT 98
--- NOTE | 2025-03-14 14:21 | DVHDS2 ---
Discharge Summary Date of Admission March 11, 2025 at 23:03 Date of Discharge: March 14, 2025 Labs/Diagnostic Data: Laboratory Results Test 03/14/25 05:57 03/13/25 04:40 03/11/25 23:59 03/11/25 23:23 Sodium Level 141 mmol/L (136-145) Potassium Level 3.7 mmol/L (3.5-5.1) Chloride Level 109 mmol/L (98-107) Carbon Dioxide Level 22 mmol/L (20-31) Anion Gap 10 (5-15) Blood Urea Nitrogen 8 mg/dL (9-23) Creatinine 0.80 mg/dL (0.700-1.30) Glomerular Filtration Rate Calc 118 mL/min (>90) BUN/Creatinine Ratio 10.0 (10.0-20.0) Serum Glucose 94 mg/dL (74-106) Calcium Level 8.4 mg/dL (8.7-10.4) White Blood Count 4.6 10^3/uL (4.4-10.8) Red Blood Count 4.12 10^6/uL (4.5-5.90) Hemoglobin 12.5 g/dL (13.5-17.5) Hematocrit 37.5 % (41.0-53.0) Mean Corpuscular Volume 90.9 fL (80.0-100.0) Mean Corpuscular Hemoglobin 30.3 pg (28.0-32.0) Mean Corpuscular Hemoglobin Concent 33.3 g/dL (32.0-36.0) Red Cell Distribution Width 13.1 % (11.8-14.3) Platelet Count 244 10^3/uL (140-450) Mean Platelet Volume 7.4 fL (6.9-10.8) Neutrophils (%) (Auto) 49.4 % (37.0-80.0) Lymphocytes (%) (Auto) 28.1 % (10.0-50.0) Monocytes (%) (Auto) 17.6 % (0.0-12.0) Eosinophils (%) (Auto) 3.4 % (0.0-7.0) Basophils (%) (Auto) 1.5 % (0.0-2.0) Neutrophils # (Auto) 2.2 10 ^3/uL (1.6-8.6) Lymphocytes # (Auto) 1.3 10 ^3/uL (0.4-5.4) Monocytes # (Auto) 0.8 10 ^3/uL (0-1.3) Eosinophils # (Auto) 0.2 10 ^3/uL (0-0.8) Basophils # (Auto) 0.1 10 ^3/uL (0-0.2) Nucleated Red Blood Cells 0.0 % Magnesium Level 2.5 mg/dL (1.6-2.6) Total Bilirubin 0.9 mg/dL (0.2-1.0) Aspartate Amino Transferase (AST) 57 U/L (13-40) Alanine Aminotransferase (ALT) 88 U/L (7-40) Alkaline Phosphatase 81 U/L (46-116) Ammonia < 10 umol/L (11-32) Total Protein 6.1 g/dL (5.7-8.2) Albumin 3.7 g/dL (3.2-4.8) Triglycerides Level 64 mg/dL (< 150) Cholesterol Level 131 mg/dL (< 200) LDL Cholesterol 71 mg/dL (< 100) HDL Cholesterol 44 mg/dL (40-59) Thyroid Stimulating Hormone (TSH) 1.49 uIU/mL (0.55-4.78) Urine Color Light-orange (Yellow) Urine Clarity Clear (Clear) Urine pH 6.0 (5.0-9.0) Urine Specific [place] 1.029 (1.001-1.035) Urine Protein 1+ (Negative) Urine Ketones Trace (Negative) Urine Blood Trace /uL (Negative) Urine Nitrite Negative (Negative) Urine Bilirubin Negative (Negative) Urine Urobilinogen 3 mg/dL (Negative) Urine Leukocyte Esterase Negative /uL (Negative) Urine RBC 15 /hpf (0 - 3) Urine Microscopic WBC 2 /HPF (0-3) Urine Squamous Epithelial Cells None seen /hpf (<5) Urine Bacteria None seen /hpf (None Seen) Urine Mucus Few (None Seen) Urine Glucose Normal mg/dL (Normal) Urine Opiates Screen Neg (NEGATIVE) Urine Fentanyl Screen Neg (NEGATIVE) Urine Barbiturates Screen Neg (NEGATIVE) Urine Phencyclidine Screen Neg (NEGATIVE) Urine Amphetamines Screen Neg (NEGATIVE) Urine Benzodiazepines Screen Neg (NEGATIVE) Urine Cocaine Screen Neg (NEGATIVE) Urine Cannabinoids Screen Neg (NEGATIVE) Creatine Kinase 129 U/L (46-171) Test 03/11/25 22:20 03/11/25 20:52 Blood Gas Specimen Type Arterial Blood Gas Sample Site Left radial Blood Gas Patient Temperature 37.0 Arterial Blood Date Drawn Arterial Blood pH 7.507 (7.350-7.450) Arterial Blood Partial Pressure CO2 39.6 mmHg (35.0-48.0) Arterial Blood Partial Pressure O2 68.2 mmHg (83.0-108.0) Arterial Blood HCO3 30.7 mmol/L (21.0-28.0) Arterial Blood Oxygen Saturation 94.2 % (94.0-98.0) Arterial Blood Base Excess 7.1 mmol/L (-2.0-3.0) Arterial Blood Oxyhemoglobin 93.4 % (94.0-98.0) Arterial Blood Carboxyhemoglobin 0.6 % (0.5-1.5) Arterial Blood Methemoglobin 0.3 % (0.0-1.5) Home Test Modified Blood Gas Total Hemoglobin 15.20 g/dL (13.5-17.5) Blood Gas Modality Room air FiO2 % 21.0 Troponin I High Sensitivity 5 ng/L (</=54) B-Type Natriuretic Peptide 19.35 pg/mL (0-100) Lipase 38 U/L (12-53) Plasma/Serum Blood Alcohol 3.6 mg/dL (<10) Other Laboratory Tests 03/14/25 05:57 03/13/25 04:40 Brief Hx & Hospital Course: Final diagnoses: Acute metabolic encephalopathy Hepatomegaly Diffuse hepatic steatosis Alcohol use disorder Hyponatremia Hypokalemia Hyperbilirubinemia Transaminitis, most likely due to alcohol use 34-year-old male with unknown past medical history is brought to the hospital by paramedics with altered level of consciousness He came from a facility or a board and custodial, he does not exactly know where he came from, he says he lives by himself in an apartment in [place] however later he says he came from [place], [place] He is disoriented to place He is disoriented to the day of the week, he is oriented to the month and year No complaints of pain He denies smoking or drug use, he admits to drinking beer daily The patient was given IV fluids and potassium supplements He gradually became more alert and oriented and was able to tell us where he lives Apparently he lives in a facility here in [place] His potassium is normal now He can go back home and follow up with his primary care physician as soon as possible He is to continue thiamine and folic acid and multivitamins and was educated about alcohol drinking cessation Condition at Discharge: Stable Final Diagnosis/Problems List Acute metabolic encephalopathy Hepatomegaly Diffuse hepatic steatosis Alcohol use disorder Hyponatremia Hypokalemia Hyperbilirubinemia Transaminitis, most likely due to alcohol use Discharge Disposition: Home SNF Discharge Will this Physician continue t: No Discharge Instruct/Medications Diet: Regular Activity: No Restrictions, As Tolerated Follow Up/Referral: PCP CRISTY Medications: Folic acid Thiamine MVI Discharge Statement: "Patient was advised to return to the ER or call 911 if any headaches, dizziness, shortness of breath, chest pain, abdominal pain, bleeding, fevers, or worsening of medical condition. Patient was counseled about treatment plan, medications, possible side effects, patient�verbalized understanding. All questions were answered to the best of my ability. This discharge took greater then 30 minutes in planning, reviewing documentation, counseling the patient, and discussing with other team members." ASSESSMENT ASSESSMENT Assessment Date of Service: March 14, 2025 Billing Provider: ANDREINA BRIGHT MD Common Visit Codes: [id number] DISCH DAY >30min ANDREINA BRIGHT MD March 14, 2025 14:21
== END 2025-03-14 16:35 | disposition home or self-care (01) | DRG 71 ==
LOC: EDBD 19:49 → ER 19:49 → OVERFLOW 23:03 → CENTRAL 03-13 10:53
PROVIDERS: ADMIT Internal Medicine Geriatric Medicine; ATTEND Internal Medicine Geriatric Medicine
DX: G93.41 Metabolic encephalopathy (principal); E87.1 Hypo-osmolality and hyponatremia; R16.0 Hepatomegaly, not elsewhere classified; E87.6 Hypokalemia; K76.0 Fatty (change of) liver, not elsewhere classified; F10.10 Alcohol abuse, uncomplicated
CPT/HCPCS: 36415; 36600; 70450; 71045; 76705; 80048; 80053; 80061; 80307; 80320; 81001; 82140; 82550; 82805; 83690; 83735; 83880; 84443; 84484; 85025; 87040; 93005; 96360; G0378; J3480; J7042